=== PATIENT | female | born 1995 | race Caucasian/White ===

== ENCOUNTER 2019-01-19 07:44 | Day surgery (SDC) | payer OTHER ==
[~2019-01-19 07:44] MED LIST: DESFLURANE 15 MIN
[2019-01-19] MEDS: SOD CHLORIDE 0.9% 1,000 ML IV (08:00)
[2019-01-19] MEDS: CEFAZOLIN 1 GM/50 ML (PMX) 50 ML IVPB (08:00)
[2019-01-19] MEDS ORDERED: ROCURONIUM 50 MG INJ (09:54)
[2019-01-19] MEDS ORDERED: PROPOFOL 20 ML (09:54)
[2019-01-19] MEDS ORDERED: LIDOCAINE 2% (SDV) 5 ML INJ (09:54)
[2019-01-19] MEDS ORDERED: CEFAZOLIN 1 GM INJ (09:54)
[2019-01-19] MEDS ORDERED: MIDAZOLAM 1 MG/ML 2 ML INJ (09:55)
[2019-01-19] MEDS ORDERED: FENTAnyl 50 MCG/ML VIAL ×2 (09:55→11:19)
[2019-01-19 10:02] LABS: ADD MAN DIFF? NO
[2019-01-19 10:08] LABS: WHITE BLOOD COUNT 6.2 10^3/ul (4.8-10.8)
[2019-01-19 10:08] LABS: BASOPHILS % 0.3 % (0.0-2.0); EOSINOPHILS # 0.1 10^3/ul (0.0-0.5); EOSINOPHILS % 1.1 % (0.0-7.0); HEMATOCRIT 38.5 % (37.0-47.0); HEMOGLOBIN 12.9 g/dl (12.0-16.0); LYMPHOCYTES # 2.2 10^3/ul (0.8-2.9); LYMPHOCYTES % 35.4 % (15.0-51.0); MEAN CORPUSCULAR HGB CONC 33.5 g/dl (32.0-37.0); MEAN CORPUSCULAR VOLUME 83.5 fl (82.0-101.0); MEAN PLATELET VOLUME 10.3 fl (7.4-10.4); MONOCYTE # 0.4 10^3/ul (0.3-0.9); MONOCYTES % 6.9 % (0.0-11.0); NEUTROPHIL # 3.5 10^3/ul (1.6-7.5); PLATELET COUNT 289 10^3/UL (140-415); RED BLOOD COUNT 4.61 10^6/ul (4.20-5.40); RED CELL DISTRIBUTION WIDTH 13.1 % (11.5-14.5)
[2019-01-19 10:27] LABS: INR 0.97
[2019-01-19 10:28] LABS: PARTIAL THROMBOPLASTIN TIME 33.2 Sec (23.0-35.0)
[2019-01-19] MEDS ORDERED: OXYCODONE/ACETAMINOPHEN (5/325) TAB PO ×2 (10:30)
[2019-01-19] MEDS ORDERED: MEPERIDINE 25 MG INJ IV (10:30)
[2019-01-19] MEDS ORDERED: ONDANSETRON 4 MG INJ IV ×2 (10:30→12:30)
[2019-01-19] MEDS ORDERED: FENTAnyl 50 MCG/ML VIAL IV ×3 (10:30)
[2019-01-19 10:41] LABS: BLOOD UREA NITROGEN 12 mg/dl (7-20)
[2019-01-19] MEDS ORDERED: BUPIVACAINE 0.5%/EPI (SDV) 10 ML INJ (10:49)
[2019-01-19] MEDS ORDERED: ONDANSETRON 4 MG INJ (11:02)
[2019-01-19] MEDS ORDERED: DEXAMETHASONE 4 MG/ML 5 ML INJ (11:02)
[2019-01-19] MEDS ORDERED: METOCLOPRAMIDE 10 MG INJ (11:02)
[2019-01-19] MEDS ORDERED: FAMOTIDINE 20 MG INJ (11:02)
[2019-01-19] MEDS ORDERED: SUGAMMADEX SODIUM 200 MG/2 ML VIAL IV (11:20)
[2019-01-19] MEDS: BUPIVACAINE 0.5%/EPI (SDV) 30 ML INJ (11:34)
[2019-01-19] MEDS: LIDOCAINE 1%/EPI (1:100,000) (MDV) 20 ML (11:35)
[2019-01-19] MEDS: POVIDONE IODINE 10% 28.4 GM OINT (11:55)
[2019-01-19] MEDS ORDERED: HYDROCODONE/APAP (5/325) TAB PO (12:30)
[2019-01-19] MEDS ORDERED: KETOROLAC 30 MG INJ IV (12:30)
== END 2019-01-19 14:15 | disposition home or self-care (01) ==
LOC: SDS 07:44
DX: L05.91 Pilonidal cyst without abscess (principal)
CPT/HCPCS: 11772; 84520; 84703; 85025; 85610; 85730; 88304